=== PATIENT | female | born 1960 | race Caucasian/White ===

== ENCOUNTER 2017-09-28 13:11 | Emergency (ER) | payer OTHER ==
[2017-09-28] MEDS ORDERED: ONDANSETRON 4 MG/2 ML VIAL IVP ONE (13:54)
[2017-09-28] MEDS ORDERED: fentaNYL 100 MCG/2 ML INJ IVP ONE ×2 (13:54→15:07)
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
[2017-09-28 15:47] VITALS: BP 122/70
== END 2017-09-28 15:47 | disposition home or self-care (01) ==
DX: S42.294A Other nondisplaced fracture of upper end of right humerus, initial encounter for closed fracture (principal); V18.4XXA Pedal cycle driver injured in noncollision transport accident in traffic accident, initial encounter; Y92.89 Other specified places as the place of occurrence of the external cause; Y99.8 Other external cause status; Y93.55 Activity, bike riding
CPT/HCPCS: 96374; J2405; J3010